=== PATIENT | male | born 1985 | race Hispanic/Latino ===

== ENCOUNTER 2016-04-10 03:24 | Emergency (ER) | payer OTHER ==
[~2016-04-10] VITALS: Ht 172.7 cm; Wt 73.5 kg
[~2016-04-10 03:24] MED LIST: NO HOME MEDS; PERCOCET 5/31 TABLET PO; PROMETHAZINE HC25 M1 PO
[2016-04-10] MEDS ORDERED: MEDROL DOSEPAK4 MG PO (05:00)
[2016-04-10] MEDS ORDERED: PERCOCET 5/31 TABLET PO (05:00)
[2016-04-10 05:27] VITALS: BP 142/85
== END 2016-04-10 05:27 | disposition home or self-care (01) ==
LOC: EME 03:24
DX: S20.212A Contusion of left front wall of thorax, initial encounter (principal); S29.012A Strain of muscle and tendon of back wall of thorax, initial encounter; S39.012A Strain of muscle, fascia and tendon of lower back, initial encounter; W20.8XXA Other cause of strike by thrown, projected or falling object, initial encounter; Y99.0 Civilian activity done for income or pay
CPT/HCPCS: 71101; 72070; 99281; 99284